=== PATIENT | female | born 1990 | race Two or more races ===

== ENCOUNTER 2024-02-10 04:46 | Emergency (ER) | payer OTHER ==
[~2024-02-10] VITALS: Ht 154.9 cm; Wt 100.7 kg
[~2024-02-10 04:46] MED LIST: IBUPROFEN600 MG PO; LABETALOL HCL100 MG PO; MONTELUKAST SOD10 MG PO; Mylicon 125MG PO; PREPLUS CA-FE1 EACH PO
[2024-02-10 06:30] LABS: HEMATOCRIT 43.1 % (36.0-45.00); HEMOGLOBIN 14.6 g/dL (12.0-15.00); MEAN CELL VOLUME 88.6 fL (80.00-100.00); MEAN CORPUSCULAR HEMOGLOBIN 30.1 pg (27.00-32.0); PLATELET COUNT 205 K/uL (150-450); RED BLOOD COUNT 4.86 M/uL (4.00-6.00); RED CELL DISTRIBUTION WIDTH 13.2 % (11.5-14.5)
== END 2024-02-10 07:19 | disposition home or self-care (01) ==
LOC: ER 04:48
DX: J06.9 Acute upper respiratory infection, unspecified (principal); Z20.822 Contact with and (suspected) exposure to COVID-19